=== PATIENT | female | born 1975 | race Caucasian/White ===

== ENCOUNTER 2019-01-02 08:59 | Emergency (ER) | payer SELFPAY ==
[~2019-01-02] VITALS: Ht 157.5 cm; Wt 89.1 kg
[~2019-01-02 08:59] MED LIST: IBUP-1542 PO
[2019-01-02 09:02] VITALS: BP 173/83; PULSE 118; RESP 18; Ht 157.5 cm; Wt 89.1 kg
[2019-01-02] MEDS ORDERED: LIDOCAINE 2% (MDV) 20 ML INJ INJ STA (09:38)
[2019-01-02] MEDS ORDERED: IBUPROFEN 600 MG TAB PO ONE (10:00)
== END 2019-01-02 10:20 | disposition home or self-care (01) ==
LOC: FTE 08:59
DX: S61.412A Laceration without foreign body of left hand, initial encounter (principal); V49.49XA Driver injured in collision with other motor vehicles in traffic accident, initial encounter